=== PATIENT | female | born 1950 | race Caucasian/White ===

== ENCOUNTER 2020-05-06 14:13 | Emergency (ER) | payer MEDICARE, OTHER ==
[~2020-05-06 14:13] MED LIST: AUGMENTIN 875-1 EACH PO; IBUPROFEN800 MG PO; MEDROL DOSEPAK 24 MG PO; ZOFRAN 4 MG TAB4 MG PO
[2020-05-06 15:27] LABS: HEMOGLOBIN 13.1 gm/dl (12.3-15.3); RED BLOOD COUNT 4.32 M/UL (4.00-5.10); WHITE BLOOD COUNT 7.3 K/UL (4.5-11.0)
[2020-05-06 15:54] LABS: BUN/CREATININE RATIO 15 (0-10)
[2020-05-06] MEDS ORDERED: VENTOLIN HFA 66.7 GM INH (17:21)
[2020-05-06] MEDS ORDERED: ULTRAM50 MG PO (17:21)
== END 2020-05-06 19:00 | disposition home or self-care (01) ==
LOC: ER1 14:13
PROVIDERS: Preventive Medicine Occupational Medicine
DX: R09.1 Pleurisy (principal); Z20.822 Contact with and (suspected) exposure to COVID-19; Z88.6 Allergy status to analgesic agent; Z87.891 Personal history of nicotine dependence; Z88.8 Allergy status to other drugs, medicaments and biological substances
CPT/HCPCS: 0240U; 71045; 80053; 82550; 82553; 83605; 83690; 83874; 83880; 84484; 85025; 85379; 85652; 86140; 96374; 96375; 99285; J1170; J2405; J7030; Q9967